=== PATIENT | male | born 1980 | race Caucasian/White ===

== ENCOUNTER 2017-01-01 14:40 | Emergency (ER) | payer OTHER ==
[~2017-01-01] VITALS: Ht 172.7 cm; Wt 70.8 kg
[2017-01-01 19:16] VITALS: BP 121/80
== END 2017-01-01 19:16 | disposition home or self-care (01) ==
LOC: ED 14:40
DX: S61.217A Laceration without foreign body of left little finger without damage to nail, initial encounter (principal); W23.0XXA Caught, crushed, jammed, or pinched between moving objects, initial encounter; Y93.89 Activity, other specified; Y92.89 Other specified places as the place of occurrence of the external cause; Y99.8 Other external cause status
CPT/HCPCS: 90715; J0690; J2001; Q0092; Q0162

== ENCOUNTER 2017-01-03 11:44 | Emergency (ER) | payer OTHER ==
[2017-01-03 11:54] VITALS: BP 134/63
== END 2017-01-03 14:30 | disposition home or self-care (01) ==
LOC: ED 11:44
DX: S61.217D Laceration without foreign body of left little finger without damage to nail, subsequent encounter (principal); X58.XXXD Exposure to other specified factors, subsequent encounter; Y99.8 Other external cause status; Y92.89 Other specified places as the place of occurrence of the external cause

== ENCOUNTER 2017-08-19 17:21 | Emergency (ER) | payer OTHER | END 2017-08-19 18:15 | disposition other institution (70) | LOC: ED 17:21 | DX: Z02.89 Encounter for other administrative examinations (principal) ==

== ENCOUNTER 2017-08-19 17:21 | Emergency (ER) | payer OTHER ==
[~2017-08-19] VITALS: Ht 170.2 cm; Wt 65.8 kg
[2017-08-19 17:24] VITALS: BP 153/114; Ht 170.2 cm; Wt 65.8 kg
== END 2017-08-19 18:15 | disposition other institution (70) ==
LOC: ED 17:21
DX: S80.811A Abrasion, right lower leg, initial encounter (principal); S00.81XA Abrasion of other part of head, initial encounter; S31.823A Puncture wound without foreign body of left buttock, initial encounter; X58.XXXA Exposure to other specified factors, initial encounter; Y93.89 Activity, other specified; Y92.89 Other specified places as the place of occurrence of the external cause; Y99.8 Other external cause status